=== PATIENT | male | born 1960 | race Caucasian/White ===

== ENCOUNTER 2020-06-28 15:42 | Observation (INO) ==
[2020-06-28] MEDS ORDERED: hydrALAZINE 20 MG/1 ML VIAL IV PRN (15:47)
[2020-06-28] MEDS ORDERED: MAGNESIUM SULF RIDER 4 GM in PREMIX 1 EACH IV PRN (15:47)
[2020-06-28] MEDS ORDERED: MAGNESIUM SULF RIDER 2 GM in PREMIX 1 EACH IV PRN (15:47)
[2020-06-28] MEDS ORDERED: ZALEPLON 5 MG CAPSULE PO PRN (15:47)
[2020-06-28] MEDS ORDERED: diphenhydrAMINE CAP 25 MG CAPSULE PO PRN (15:47)
[2020-06-28] MEDS ORDERED: POTASSIUM CHLORIDE 20 MEQ TABLET PO PRN (15:47)
[2020-06-28] MEDS ORDERED: ALUMINUM/MAGNES/SIMETH MAX STR 30 ML UDCUP PO PRN (15:47)
[2020-06-28] MEDS ORDERED: ONDANSETRON 4 MG/2 ML VIAL IV PRN (15:47)
[2020-06-28 17:28] LABS: Basophils # 0.1 10*3/uL (0.0-0.2); Basophils % 1.3 % (0.0-0.8); Eosinophils # 0.2 10*3/uL (0.0-0.87); Eosinophils % 2.5 % (0.00-10.9); Hematocrit 44.6 VOL% (42.0-52.0); Hemoglobin 14.4 GM/DL (14.0-18.0); Immature Granulocytes % 0.1 %; Immature Granulocytes Absolute 0.01 #; Lymphocytes # 2.9 10*3/uL (1.4-4.0); Lymphocytes % 38.2 % (21.2-54.2); Mean Corpuscular HGB Conc 32.3 GM/DL (32-36); Mean Corpuscular Volume 93.7 FL (87-102); Mean Platelet Volume 8.8 FL (9.6-12.0); Monocytes % 8.8 % (1.7-12.7); Neutrophils % 49.1 % (38.7-73.9); Platelet Count 200 T/CUMM (130-400); Red Blood Count 4.76 MC/CUMM (3.8-5.5); Red Cell Distribution Width 14.8 % (9.3-17.3); White Blood Count 7.5 T/CUMM (4-12)
[2020-06-28 17:49] LABS: Bilirubin,Total 0.6 MG/DL (0.2-1.0); Calcium 9.6 MG/DL (8.5-10.1); Total Protein 9.3 G/DL (6.4-8.3)
[2020-06-28] MEDS: ENOXAPARIN 100 MG/ML SYRINGE SUBCUT SCH (20:38)
[2020-06-29 05:07] LABS: Basophils # 0.1 10*3/uL (0.0-0.2); Basophils % 1.5 % (0.0-0.8); Eosinophils # 0.1 10*3/uL (0.0-0.87); Eosinophils % 1.1 % (0.00-10.9); Hematocrit 41.6 VOL% (42.0-52.0); Hemoglobin 13.6 GM/DL (14.0-18.0); Immature Granulocytes % 0.2 %; Immature Granulocytes Absolute 0.01 #; Lymphocytes # 2.2 10*3/uL (1.4-4.0); Lymphocytes % 41.4 % (21.2-54.2); Mean Corpuscular HGB Conc 32.7 GM/DL (32-36); Mean Corpuscular Volume 94.1 FL (87-102); Mean Platelet Volume 9.1 FL (9.6-12.0); Monocytes % 10.8 % (1.7-12.7); Platelet Count 170 T/CUMM (130-400); Red Blood Count 4.42 MC/CUMM (3.8-5.5); Red Cell Distribution Width 14.7 % (9.3-17.3); White Blood Count 5.4 T/CUMM (4-12)
[2020-06-29 05:11] LABS: PT Patient Result 11.1 SECS (9.8-11.9)
[2020-06-29 05:26] LABS: Calcium 9.4 MG/DL (8.5-10.1); Osmolality,Calculated 276.5 MOS/KG (273-304)
[2020-06-29 05:33] LABS: Eosinophils 9 % (0-10); Hypochromasia 1+; Lymphocytes 32 % (20-55); Microcytosis Slight; Platelet Estimate Adequate; Segmented Neutrophils 50 % (50-85); Total Cells Counted 100
[2020-06-29] MEDS ORDERED: ceFAZolin 1,000 MG in SYRINGE 1 EACH IV ONE (09:00)
[2020-06-29] MEDS ORDERED: MIDAZOLAM 2 MG/2 ML VIAL IV ONE (09:00)
[2020-06-29] MEDS ORDERED: fentaNYL 100 MCG/2 ML VIAL IV ONE (09:00)
[2020-06-29] MEDS ORDERED: HEPARIN/NACL 0.9% 2 UNITS/ML 2,000 ML IV ONE (09:49)
[2020-06-29] MEDS ORDERED: ALTEPLASE 2 MG VIAL ONE ×2 (10:58→12:53)
[2020-06-29] MEDS ORDERED: HEPARIN 5,000 UNIT/1 ML VIAL ONE (11:05)
[2020-06-29] MEDS ORDERED: HEPARIN 5,000 UNIT/1 ML VIAL IV ONE (12:30)
[2020-06-29] MEDS ORDERED: HEPARIN 1,000 UNIT/1 ML VIAL ONE (12:55)
[2020-06-29] MEDS: FUROSEMIDE 20 MG TABLET PO SCH (16:46)
[2020-06-29] MEDS: POTASSIUM CHLORIDE 20 MEQ TABLET PO SCH (16:46)
[2020-06-29] MEDS: PANTOPRAZOLE 40 MG TABLET PO SCH (16:47)
[2020-06-29] MEDS: APIXABAN 5 MG TABLET PO SCH ×2 (16:47→21:38)
[2020-06-29] MEDS: ENOXAPARIN 100 MG/ML SYRINGE SUBCUT SCH (16:56)
[2020-06-30 04:22] LABS: Basophils # 0.1 10*3/uL (0.0-0.2); Basophils % 0.8 % (0.0-0.8); Eosinophils # 0.2 10*3/uL (0.0-0.87); Eosinophils % 2.4 % (0.00-10.9); Hemoglobin 12.5 GM/DL (14.0-18.0); Immature Granulocytes % 0.4 %; Immature Granulocytes Absolute 0.03 #; Lymphocytes # 2.6 10*3/uL (1.4-4.0); Lymphocytes % 31.2 % (21.2-54.2); Mean Corpuscular HGB Conc 32.1 GM/DL (32-36); Mean Corpuscular Volume 94.9 FL (87-102); Monocytes % 8.9 % (1.7-12.7); Neutrophils % 56.3 % (38.7-73.9); Platelet Count 174 T/CUMM (130-400); Red Blood Count 4.11 MC/CUMM (3.8-5.5); White Blood Count 8.4 T/CUMM (4-12)
[2020-06-30 04:39] LABS: Calcium 9.3 MG/DL (8.5-10.1); Osmolality,Calculated 280.4 MOS/KG (273-304)
[2020-06-30] MEDS: POTASSIUM CHLORIDE 20 MEQ TABLET PO SCH (09:29)
[2020-06-30] MEDS: PANTOPRAZOLE 40 MG TABLET PO SCH (09:29)
[2020-06-30] MEDS: FUROSEMIDE 20 MG TABLET PO SCH (09:29)
[2020-06-30] MEDS: APIXABAN 5 MG TABLET PO SCH (09:29)
[2020-06-30] MEDS ORDERED: HEPARIN 5,000 UNIT/1 ML VIAL IV ONE (09:41)
[2020-06-30 11:13] VITALS: BP 134/92
== END 2020-06-30 12:20 | disposition home or self-care (01) ==
LOC: N.5E 16:23 → INTOOBSV 16:23
PROVIDERS: ADMIT Internal Medicine Cardiovascular Disease; ATTEND Internal Medicine Cardiovascular Disease